=== PATIENT | male | born 1985 | race Caucasian/White ===

== ENCOUNTER 2021-03-16 22:19 | Emergency (ER) | payer OTHER ==
[~2021-03-16] VITALS: Ht 175.3 cm; Wt 133.4 kg
--- NOTE | 2021-03-16 22:31 | PHYS DOC ---
Adult General HPI HPI This is a pleasant 35-year-old male previously healthy other than splenectomy at age 14 presented to the emergency department from a intermediate house with complaint of diffuse abdominal pain umbilical, left upper, left lower. Patient states the pain started about 6 PM this evening. He did report that he feels his abdominal structures are moving inside his belly. He states pain is achy and 10 out of 10. Pain without any radiation. Reports lying down makes pain better. However application of ice or movement of any type causes pain worse. He denies any fever, nausea or vomiting. Does report mild cold feeling. He states that he is out of shelter after being in shelter for 12 years. He is out of shelter for past 2 days and being in the intermediate house now. He does report soft loose stool today. Denies any unusual food intake. Denies any urinary symptoms. Denies any sick contact or recent travel. Denies any recent hospitalization or antibiotic usage. Review of Systems Review of Systems Constitutional: Denies fever or chills [] Eyes: Denies change in visual acuity, redness, or eye pain [] HENT: Denies nasal congestion or sore throat [] Respiratory: Denies cough or shortness of breath [] Cardiovascular: No additional information not addressed in HPI [] GI: Reports abdominal pain, denies nausea, vomiting, bloody stools : Denies dysuria or hematuria [] Musculoskeletal: Denies back pain or joint pain [] Integument: Denies rash or skin lesions [] Neurologic: Denies headache, focal weakness or sensory changes [] Endocrine: Denies polyuria or polydipsia [] All other systems were reviewed and found to be within normal limits, except as documented in this note. Physical Exam Physical Exam Constitutional: Well developed, well nourished, no acute distress, non-toxic appearance. [] HENT: Normocephalic, atraumatic, bilateral external ears normal, oropharynx moist, no oral exudates, nose normal. [] Eyes: PERRLA, EOMI, conjunctiva normal, no discharge. [] Neck: Normal range of motion, no tenderness, supple, no stridor. [] Cardiovascular:Heart rate regular rhythm, no murmur [] Lungs & Thorax: Bilateral breath sounds clear to auscultation [] Abdomen: Bowel sounds normal, soft, diffuse mild generalized tenderness throughout, patient does have area of bulge distal to the splenectomy surgical scar which is tender to palpate. No obvious fascial defect noted. Suspected hernia from previous surgery. Skin: Warm, dry, no erythema, no rash. [] Back: No tenderness, no CVA tenderness. [] Extremities: No tenderness, no cyanosis, no clubbing, ROM intact, no edema. [] Neurologic: Alert and oriented X 3, normal motor function, normal sensory function, no focal deficits noted. [] Psychologic: Affect normal, judgement normal, mood normal. [] EKG EKG [] Radiology/Procedures Radiology/Procedures [] Heart Score C/O Chest Pain: N/A Risk Factors: Risk Factors: DM, Current or recent (<one month) smoker, HTN, HLP, family history of CAD, obesity. Risk Scores: Risk Factors: DM, Current or recent (<one month) smoker, HTN, HLP, family history of CAD, obesity. Course & Med Decision Making Course & Med Decision Making Laboratory Tests Test 03/17/21 00:09 White Blood Count 13.1 x10^3/uL Red Blood Count 5.07 x10^6/uL Hemoglobin 15.9 g/dL Hematocrit 46.1 % Mean Corpuscular Volume 91 fL Mean Corpuscular Hemoglobin 31 pg Mean Corpuscular Hemoglobin Concent 35 g/dL Red Cell Distribution Width 13.7 % Platelet Count 248 x10^3/uL Neutrophils (%) (Auto) 60 % Lymphocytes (%) (Auto) 34 % Monocytes (%) (Auto) 5 % Eosinophils (%) (Auto) 0 % Basophils (%) (Auto) 1 % Neutrophils # (Auto) 7.8 x10^3uL Lymphocytes # (Auto) 4.5 x10^3/uL Monocytes # (Auto) 0.6 x10^3/uL Eosinophils # (Auto) 0.0 x10^3/uL Basophils # (Auto) 0.1 x10^3/uL Sodium Level 141 mmol/L Potassium Level 4.2 mmol/L Chloride Level 105 mmol/L Carbon Dioxide Level 25 mmol/L Anion Gap 11 Blood Urea Nitrogen 12 mg/dL Creatinine 1.0 mg/dL Estimated GFR (Cockcroft-Gault) 85.0 BUN/Creatinine Ratio 12 Glucose Level 119 mg/dL Lactic Acid Level 1.3 mmol/L Calcium Level 9.3 mg/dL Total Bilirubin 0.9 mg/dL Aspartate Amino Transf (AST/SGOT) 105 U/L Alanine Aminotransferase (ALT/SGPT) 231 U/L Alkaline Phosphatase 97 U/L C-Reactive Protein 0.9 mg/L Total Protein 7.5 g/dL Albumin 4.0 g/dL Albumin/Globulin Ratio 1.1 Lipase 111 U/L Current Medications Medications (Trade) Dose Ordered Sig/Musa Route PRN Reason Start Time Stop Time Status Last Admin Dose Admin Ketorolac Tromethamine (Toradol 30mg Vial) 30 mg 1X ONCE IVP 03/16/21 23:45 03/16/21 23:46 DC 03/17/21 00:20 Lactated Ringer's 1,000 ml @ 999 mls/hr 1X ONCE IV 03/16/21 23:45 03/17/21 00:45 DC 03/16/21 00:19 Iohexol (Omnipaque 300 Mg/ml) 75 ml 1X ONCE IV 03/17/21 01:00 03/17/21 01:01 DC 03/17/21 00:51 Info (Do NOT chart on this entry -- for MONITORING) 1 each PRN DAILY PRN MC SEE COMMENTS 03/17/21 00:45 03/19/21 00:44 Pertinent Labs and Imaging studies reviewed. (See chart for details) [] Signed PATIENT: RICKY ESQUIVELCOUNT: [id number] : 1985 LOCATION: ER AGE: 35 SEX: M EXAM STATUS: REG ER ORD. PHYSICIAN: MANNY CONTRERAS MD REASON: Umbilical hernia, history of splenectomy - 75mls omni 300 PROCEDURE: CT ABD PELV W/ IV CONTRST ONLY CT abdomen and pelvis with contrast: Reason for examination: Umbilical hernia. History of splenectomy. Helical images were obtained through the abdomen pelvis with intravenous administration of 75 cc Omnipaque 300. Reconstruction was performed in sagittal and coronal planes. Exposure: One or more of the following individualized dose reduction techniques were utilized for this examination: 1. Automated exposure control 2. Adjustment of the mA and/or kV according to patient size 3. Use of iterative reconstruction technique. The lung bases are clear. The heart size is normal with no pericardial effusion. No abnormality seen at the liver. Spleen is surgically absent. There are however multiple small nodular densities present in the left upper quadrant with the largest of these measures approximately 3.6 cm in size. No abnormality seen at the pancreas or gallbladder. The abdominal aorta and inferior vena cava show no acute abnormalities. The colon shows no diverticulosis, diverticulitis or colitis no abnormality seen at the appendix. The small intestinal tract shows dilatation proximally with transition at the umbilical hernia which appears to contain a 10 cm loop of small intestine. The kidneys show no renal calculi, renal masses, hydronephrosis or evidence of obstructive uropathy. No abnormality seen at the bladder, prostate gland or seminal vesicles. No free fluid or free air is seen in the abdomen or pelvis. No acute bony abnormalities are seen. IMPRESSION: History of splenectomy. Multiple circumscribed nodules however present in the left upper quadrant measuring up to 3.6 cm in size. These could represent multiple splenules but recommend clinical correlation. Dilated small bowel with transition at the umbilical hernia which contains a 10 cm loop of small intestine. Patient was evaluated and examined immediately upon arrival to the ER. Patient appears nontoxic. He does have history of splenectomy at 14 years old. Patient has chronic scar from splenectomy surgery. He also has chronic umbilical hernia. Today he complains of pain in the umbilical hernia site. Patient blood work reviewed. Mild leukocytosis likely secondary to stress reaction/inflammatory processes. Patient lactic acid within normal limits. He is afebrile. Patient CT abdomen pelvis revealed distended bowel 10 cm ball within the hernia. Nonobstructive. No strangulation or incarceration. Patient was advised to follow-up with surgeon and be evaluated for possible further investigation. He was also encouraged to establish primary care provider. Agusto Disclaimer Dragon Disclaimer This electronic medical record was generated, in whole or in part, using a voice recognition dictation system. Departure Departure: Impression: Primary Impression: Umbilical hernia without mention of obstruction or gangrene Additional Impressions: History of splenectomy Leukocytosis Disposition: 01 HOME / SELF CARE / HOMELESS Condition: GOOD Referrals: [facility] (PCP) Additional Instructions: Please establish primary care provider if possible. Otherwise I would like you to follow-up with a general surgeon for evaluation of your umbilical hernia. Please call the surgeon's office and make an appointment. Take medications as prescribed. Return to the emergency department if symptom worsens. Scripts Metronidazole (FLAGYL) 500 Mg Tablet 1 TAB PO BID for infection for 7 Days, #14 TAB Prov: MANNY CONTRERAS MD 03/17/21 Tramadol Hcl (TRAMADOL HCL) 50 Mg Tablet 50 MG PO PRN Q6HRS PRN for PAIN for 5 Days, #20 TAB Prov: MANNY CONTRERAS MD 03/17/21 Naproxen (NAPROXEN) 500 Mg Tablet 1 TAB PO BID for pain for 10 Days, #20 TAB 0 Refills Prov: MANNY CONTRERAS MD 03/17/21 Ondansetron Hcl (ZOFRAN) 4 Mg Tablet 1 TAB PO Q6HRS for nausea for 5 Days, #20 TAB Prov: MANNY CONTRERAS MD 03/17/21 Problem Qualifiers MANNY CONTRERAS MD Mar 16, 2021 22:31
[2021-03-16] MEDS ORDERED: KETOROLAC 30 MG/ML VIAL. IVP ONE (23:45)
[2021-03-16] MEDS ORDERED: IV RINGERS SOLUTION,LACTATED 1,000 ML IV ONE (23:45)
[2021-03-17] MEDS ORDERED: CONTRAST GIVEN. MC PRN (00:45)
[2021-03-17 00:47] LABS: BASO # 0.1 x10^3/uL (0.0-0.2); BASO % 1 % (0-3); EOS % 0 % (0-3); HEMATOCRIT 46.1 % (39.0-53.0); HEMOGLOBIN 15.9 g/dL (13.0-17.5); LYMPH # 4.5 x10^3/uL (1.0-4.8); LYMPH % 34 % (24-48); MEAN CORPUSCULAR HEMOGLOBIN 31 pg (25-35); MEAN CORPUSCULAR HGB CONC 35 g/dL (31-37); MEAN CORPUSCULAR VOLUME 91 fL (79-100); MONO # 0.6 x10^3/uL (0.0-1.1); MONO % 5 % (0-9); NEUT # 7.8 x10^3uL (1.8-7.7); NEUT % 60 % (31-73); PLATELET COUNT 248 x10^3/uL (140-400); RED BLOOD COUNT 5.07 x10^6/uL (4.30-5.70); RED CELL DISTRIBUTION WIDTH 13.7 % (11.5-14.5); WHITE BLOOD COUNT 13.1 x10^3/uL (4.0-11.0)
[2021-03-17 00:55] LABS: CALCIUM 9.3 mg/dL (8.5-10.1); POTASSIUM 4.2 mmol/L (3.5-5.1)
[2021-03-17] MEDS ORDERED: IOHEXOL 300 MG/ML 75 ML VIAL. IV ONE (01:00)
[2021-03-17 01:10] LABS: ALBUMIN/GLOBULIN RATIO 1.1 (1.0-1.7); C REACTIVE PROTEIN 0.9 mg/L (0-3.3); TOTAL BILIRUBIN 0.9 mg/dL (0.2-1.0); TOTAL PROTEIN 7.5 g/dL (6.4-8.2)
--- NOTE | 2021-03-17 02:37 | RAD ---
CT abdomen and pelvis with contrast: Reason for examination: Umbilical hernia. History of splenectomy. Helical images were obtained through the abdomen pelvis with intravenous administration of 75 cc Omni paque 300. Reconstruction was performed in sagittal and coronal planes. Exposure: One or more of the following individualized dose reduction techniques were utilized for thi s examination: 1. Automated exposure control 2. Adjustment of the mA and/or kV according to patient size 3. Use of iterative reconstruction technique. The lung bases are clear. The heart size is normal with no pericardial effusion. No abnormality seen at the liver. Spleen is surgically absent. There are however multiple small nodul ar densities present in the left upper quadrant with the largest of these measures approximately 3.6 cm in size. No abnormality seen at the pancreas or gallbladder. The abdominal aorta and inferior vena cava show no acute abnormalities. The colon shows no diverticulosis, diverticulitis or colitis no ab normality seen at the appendix. The small intestinal tract shows dilatation proximally with transitio n at the umbilical hernia which appears to contain a 10 cm loop of small intestine. The kidneys show no renal calculi, renal masses, hydronephrosis or evidence of obstructive uropathy. No abnormality seen at the bladder, prostate gland or seminal vesicles. No free fluid or free air is seen in the abdomen or pelvis. No acute bony abnormalities are seen. IMPRESSION: History of splenectomy. Multiple circumscribed nodules however present in the left upper quadrant measuring up to 3.6 cm in s ize. These could represent multiple splenules but recommend clinical correlation. Dilated small bowel with transition at the umbilical hernia which contains a 10 cm loop of small inte naomy. Electronically signed by: Cindy Salmeron MD (03/17/2021 2:34 AM) JUANA
[2021-03-17] MEDS ORDERED: ONDA4TAB7 PO (02:54)
[2021-03-17] MEDS ORDERED: TRAM50TA PO (02:56)
[2021-03-17] MEDS ORDERED: NAPR-514 PO (02:56)
[2021-03-17] MEDS ORDERED: METR500T PO (02:57)
[2021-03-17 03:05] VITALS: BP 123/73
== END 2021-03-17 03:05 | disposition home or self-care (01) ==
LOC: ER 22:19
DX: K42.9 Umbilical hernia without obstruction or gangrene (principal); D72.829 Elevated white blood cell count, unspecified; Z90.81 Acquired absence of spleen
CPT/HCPCS: 36415; 74177; 80053; 83605; 83690; 85025; 86140; 96361; 96374; 99285; J1885; J7120; Q9967

== ENCOUNTER 2021-05-21 07:01 | Emergency (ER) | payer OTHER ==
[~2021-05-21] VITALS: Ht 175.3 cm; Wt 133.4 kg
[~2021-05-21 07:01] MED LIST: METR500T PO; NAPR-514 PO; ONDA4TAB7 PO; TRAM50TA PO
[2021-05-21 07:13] VITALS: BP 157/99
--- NOTE | 2021-05-21 07:28 | PHYS DOC ---
Past History Past Medical History: Hypertension Past Surgical History: Spleenectomy Alcohol Use: None Adult General Chief Complaint Chief Complaint: DENTAL PROBLEM HPI HPI Patient is a 35-year-old male presenting for dental pain. Onset was late last night without any known inciting event, trauma, ingestion or other concerning exposure. Nothing known makes better, he has not taken anything in attempt to alleviate his pain. Direct palpation and eating/drinking make worse. Pain is focal to bottom left portion of mouth at tooth #22. He has no prior history of dental abscess or other invasive dental work beyond the cavity work. He has no current dentist. Was recently released from [facility] and at current [facility] in [facility]. No fever, facial swelling, trouble swallowing or tolerating secretions reported Review of Systems Review of Systems Fourteen body systems of review of systems have been reviewed. See HPI for pertinent positives and negative responses, other morrow all other systems are negative, non-pertinent or non-contributory Allergies Allergies Allergies Coded Allergies Type Severity Reaction Last Updated Verified No Known Drug Allergies 03/16/21 No Physical Exam Physical Exam Constitutional: Well developed, well nourished, no acute distress, non-toxic appearance. HENT: Normocephalic, atraumatic, bilateral external ears normal, oropharynx mois t, no oral exudates, nose normal. Poor dental hygiene grossly with several cavities and dental caries. Tooth #22, bottom left incisor is tooth of focal pain without any apical/gingival swelling, abscess formation, purulent drainage or other obvious exudate. No facial nor mandible swelling. Tolerating secretions, no phonation changes Eyes: PERRLA, EOMI, conjunctiva normal, no discharge. Neck: Normal range of motion, no tenderness, supple, no stridor. Cardiovascular: Heart rate regular per monitor Lungs & Thorax: No respiratory distress or accessory muscle use, bilateral chest rise Abdomen: Abdomen soft, non-tender, bowel sounds present in all quadrants, no guarding or rebound, nonacute abdomen. Skin: Warm, dry, no erythema, no rash. Back: No tenderness, no CVA tenderness. Extremities: No tenderness, no cyanosis, no clubbing, ROM intact, no edema. Neurologic: Alert and oriented X 3, grossly normal motor & sensory function, no focal deficits noted. Psychologic: Affect normal, judgement normal, mood normal. Current Patient Data Vital Signs Vital Signs Date Time Temp Pulse Resp B/P (MAP) Pulse Ox O2 Delivery O2 Flow Rate FiO2 05/21/21 07:13 97.7 60 16 157/99 98 Room Air EKG EKG [] Radiology/Procedures Radiology/Procedures [] Heart Score C/O Chest Pain: No Risk Factors: Risk Factors: DM, Current or recent (<one month) smoker, HTN, HLP, family history of CAD, obesity. Risk Scores: Risk Factors: DM, Current or recent (<one month) smoker, HTN, HLP, family history of CAD, obesity. Course & Med Decision Making Course & Med Decision Making Vitals stable. HPI and physical examination nonconcerning for any emergent or surgical issues. Patient likely suffering from acute on chronic poor dental hygiene and dental caries. No indication for antibiotics. Continued supportive care practices with NSAIDs and/or Tylenol recommended for pain in addition to good oral hygiene and recommendations to establish care with a local dentist. Resources given on departure Dragon Disclaimer Dragon Disclaimer This electronic medical record was generated, in whole or in part, using a voice recognition dictation system. Departure Departure: Impression: Primary Impression: Dental caries Disposition: HOME / SELF CARE / HOMELESS Condition: STABLE Referrals: PCP,NO (PCP) Patient Instructions: Dental Caries-Brief Additional Instructions: You were seen for dental pain. There does not appear to be any infection at this time. Take Ibuprofen (600-800mg) and Tylenol (500-650mg) alternating every 4-6 hours to help with inflammation and pain while you contact a dentist for further care. You should return to the ED if you develop worsening pain, fever > 101, swelling, redness, or any other new or concerning symptoms. Unfortunately, your pain is not likely to improve without seeing a dentist for further evaluation and treatment of your poor dentition and dental caries. DOMINIC VELASQUEZ DO May 21, 2021 07:28
== END 2021-05-21 07:34 | disposition home or self-care (01) ==
LOC: ER 07:01
DX: K02.9 Dental caries, unspecified (principal); I10 Essential (primary) hypertension
CPT/HCPCS: 99282